=== PATIENT | female | born 1985 | race Caucasian/White ===

== ENCOUNTER 2018-04-20 12:17 | Emergency (ER) | payer BC ==
[2018-04-20] MEDS: KETOROLAC 30 MG INJ IM (13:09)
[2018-04-20] MEDS: ONDANSETRON (ODT) 4 MG TAB ODT (13:09)
[2018-04-20] MEDS: METHOCARBAMOL 750 MG TAB PO (14:24)
[2018-04-20] MEDS: HYDROCODONE/APAP (5/325) TAB PO (15:27)
== END 2018-04-20 17:09 | disposition home or self-care (01) ==
LOC: FTE 12:17
DX: M54.5 Low back pain (principal)
CPT/HCPCS: 72131; 81025; 96372; 99285-25

== ENCOUNTER 2018-05-12 08:51 | Emergency (ER) | payer BC | END 2018-05-12 10:40 | disposition home or self-care (01) | LOC: FTE 08:51 | DX: M54.5 Low back pain (principal) | CPT/HCPCS: 72040; 99283-25 ==